=== PATIENT | male | born 1970 | race Caucasian/White ===

== ENCOUNTER → 2023-09-08 09:36 | Outpatient (CLI) | payer OTHER, MEDICAID, SELFPAY ==
[2023-09-08 19:09] LABS: Cholesterol 155 mg/dL (140-199); HDL Cholesterol 49 mg/dL (40-60); LDL Cholesterol Calculated 96 mg/dL (<100); Triglycerides 52 mg/dL (35-150)
[2023-09-08 19:12] LABS: Hemoglobin A1C% w Est Avg Glu 5.9 % (4.0-6.0)
[2023-09-17 17:53] LABS: Testosterone Free 7.24 ng/dL (5.00-21.00)
== END ==
PROVIDERS: PCP Family Medicine; Visit Provider Family Medicine
DX: R68.82 Decreased libido (principal)
CPT/HCPCS: 80061; 83036; 84402; 84403

== ENCOUNTER → 2023-10-07 07:58 | Outpatient (CLI) | payer OTHER, MEDICAID, SELFPAY ==
--- NOTE | 2023-10-08 08:45 | DI.NM.S_ITS ---
DATE OF SERVICE: 10/07/2023 PROCEDURE: Exercise stress test. INDICATIONS: Chest pain. CARDIAC STRESS: The patient underwent exercise stress test under the supervision of an attending staff. The patient walked on Se protocol for 12 minutes, achieved 12.8 METS of workload, DARIO -20%. Maximum heart rate 160, which is 96% of target heart rate. Resting blood pressure of 136/86 and peak blood pressure 182/92 mmHg. No chest pain or anginal symptoms. Baseline rhythm sinus. During stress, no convincing ischemic changes seen. No significant arrhythmias seen. CONCLUSION: Exercise stress test is negative for inducible ischemia. Good exercise tolerance. Normal hemodynamic response. No anginal symptoms. No significant arrhythmias. Overall, low-risk exercise stress test. Logan Wayne - LUCITA/jacob/ARIANA doc#: [id number]/job#: [id number] dd: 10/07/2023 16:40:00 dt: 10/07/2023 22:10:00 DICTATING /COPIES TO: William Barron MD COPIES MNE: ALLY;
== END ==
PROVIDERS: PCP Family Medicine; Referring Provider Family Medicine; Visit Provider Family Medicine
DX: R07.89 Other chest pain (principal)
CPT/HCPCS: 93017

== ENCOUNTER 2023-12-19 21:06 | Emergency (ER) | payer OTHER, MEDICAID, SELFPAY ==
[2023-12-19] VITALS (7 sets, daily range): BP systolic 117–150; BP diastolic 69–85; PULSE 54–65; RESP 16–18; TEMP 36.6; O2SAT 93–95
--- NOTE | 2023-12-19 21:49 | ED.SKABFB ---
HPI - Skin/Abscess/Foreign Bdy General Chief complaint: Skin/Abscess/Foreign Body Stated complaint: fever/rash Time Seen by Provider: 12/19/23 21:28 Source: patient Mode of arrival: Ambulatory Limitations: no limitations History of Present Illness HPI narrative: Patient is a 53-year-old male who the couple days is and fevers. He also has a rash that is located on his buttocks in his abdomen chest. He thinks it has been potentially because of being in a hot tub. He also has an area of redness and exquisite tenderness around his right breast around the nipple region. He was seen by his provider on [facility] who advised that he come to the emergency department for evaluation Related Data Previous Rx's Medication Instructions Recorded bupropion HCl 150 mg 24 hr tablet, 150 mg PO QAM #90 tabs 11/17/23 extended release (Wellbutrin XL) triamcinolone acetonide 0.1 % 1 applic topical BID #15 grams 11/17/23 topical cream cephalexin 500 mg capsule 500 mg PO QID 5 days #20 caps 12/19/23 Allergies Allergy/AdvReac Type Severity Reaction Status Date / Time No Known Drug Allergies Allergy Verified 08/26/23 11:12 Review of Systems Constitutional Constitutional: Reports system reviewed and no additional complaints, except as documented Cardiovascular Cardiovascular: Reports system reviewed and no additional complaints, except as documented Respiratory Respiratory: Reports system reviewed and no additional complaints, except as documented Musculoskeletal Musculoskeletal: Reports system reviewed and no additional complaints, except as documented Integumentary/Breasts Skin/Breast: Reports system reviewed and no additional complaints, except as documented Neurologic Neurologic: Reports system reviewed and no additional complaints, except as documented Allergic/Immunologic Allergic/Immunologic: Reports system reviewed and no additional complaints, except as documented Patient History Medical History Chicken pox Social History Smoking Status: Current some day smoker Smoking Status: Current some day smoker tobacco type: smokeless tobacco Substance Use Type: does not use Exam Initial Vital Signs Initial Vital Signs: Vital Signs Temperature 97.9 F 12/19/23 21:07 Pulse Rate 65 12/19/23 21:07 Respiratory Rate 16 12/19/23 21:07 Blood Pressure 145/76 H 12/19/23 21:07 Oxygen Delivery Method Room Air 12/19/23 21:07 Const General: cooperative, comfortable and No ill appearing HENMT Head: normal to inspection Resp Effort & Inspection: normal respiratory effort Auscultation: clear to auscultation bilaterally Cardio Rate: regular rate Rhythm: regular rhythm GI Inspection: normal to inspection Skin Other: Patient has well demarcated lesions on his buttocks and his abdomen is upper chest. They are pustules. No vesicles noted. There was no surrounding erythema. There is a area of redness and induration just medial to his right nipple. There are no vesicles in this area. Neuro General: patient alert, patient awake and moves all extremities Extrem General: capillary refill normal Course Orders Ordered: ED Orders 12/19/23 21:56 Covid-19 + FLU A/B + RSV - PCR Stat 12/19/23 23:10 Basic Metabolic Panel Stat Complete Blood Count AUTO DIFF Stat Discontinued Medications Cephalexin HCl (Cephalexin 250 Mg Capsule) 500 mg PO NOW ONE Stop: 12/19/23 21:50 Last Admin: 12/19/23 21:53 Dose: 500 mg Documented By: CHRIS Vital Signs Vital signs: Vital Signs - 8 hr 12/19/23 21:07 12/19/23 21:20 12/19/23 21:20 Temperature 97.9 F Pulse Rate 65 59 L Respiratory Rate 16 Blood Pressure 145/76 H 150/85 H Pulse Oximetry 95 Oxygen Delivery Method Room Air 12/19/23 21:30 12/19/23 21:30 12/19/23 22:00 Temperature Pulse Rate 61 Respiratory Rate Blood Pressure 139/85 133/71 Pulse Oximetry 94 Oxygen Delivery Method 12/19/23 22:00 12/19/23 22:30 12/19/23 22:30 Temperature Pulse Rate 57 L 56 L Respiratory Rate Blood Pressure 123/69 Pulse Oximetry 94 93 Oxygen Delivery Method 12/19/23 23:00 12/19/23 23:00 12/19/23 23:30 Temperature Pulse Rate 54 L 56 L Respiratory Rate 18 Blood Pressure 117/71 Pulse Oximetry 94 94 Oxygen Delivery Method MDM - Skin/Abscess/Foreign Bdy Lab Data Attestation: I reviewed the patient's lab results. 12/19/23 23:10 12/19/23 23:10 Labs: Lab Results 12/19/23 12/19/23 Range/Units 21:56 23:10 WBC 9.0 (4.5-11.0) X10^3/uL RBC 5.31 (4.5-5.9) X10^6/uL Hgb 16.2 (13.5-17.5) g/dL Hct 46.6 (41-53) % MCV 87.7 (80-100) fL MCH 30.5 (26-34) PG MCHC 34.8 (30-36) % RDW 13.2 (11.6-14.8) % Plt Count 262 (150-400) X10^3/uL Neut % (Auto) 59.7 (50-75) % Lymph % (Auto) 22.2 L (25-40) % [place] % (Auto) 8.3 (3-14) % Eos % (Auto) 9.3 H (2-4) % Baso % (Auto) 0.5 (0-2) % Neut # (Auto) 5400 (1001-6719) /uL Lymph # (Auto) 2000 (1742-3204) /uL [place] # (Auto) 700 (0-900) /uL Eos # (Auto) 800 H (0-450) /uL Baso # (Auto) 0 (0-100) /uL Sodium 137 (137-145) mmol/L Potassium 3.8 (3.4-5.1) mmol/L Chloride 106 (98-107) mmol/L Carbon Dioxide 25 (22-32) mmol/L BUN 16 (9-20) mg/dL Creatinine 0.65 L (0.66-1.25) mg/dL Estimated GFR > 60 (>60) mL/min BUN/Creatinine Ratio 24.6 H (6-22) Glucose 93 (70-100) mg/dL Calcium 9.3 (8.4-10.2) mg/dL SARS-CoV-2 (PCR) Negative (Negative) Influenza A (RT-PCR) Flu a negative (NEGATIVE) Influenza B (RT-PCR) Flu b negative (NEGATIVE) RSV (PCR) Negative (Negative) MDM Narrative Medical decision making narrative: Patient does pustules that is most consistent with folliculitis. Not consistent with HSV. Not consistent with shingles or chickenpox. The area around his right nipple would be consistent with a cellulitis. None of his other skin lesions appear to be cellulitic in origin. No recent antibiotics. COVID and flu is negative. Labs unremarkable in his vital signs are unremarkable. Will start him on antibiotics because of the area on his right chest. There was no drainable abscess noted. First dose of antibiotics given here in the emergency department. Will discharge home with return precautions. Patient expressed understanding and agreement. Discharge Plan Departure Patient Disposition: Home Clinical Impression: Folliculitis Instructions: DI for Cellulitis -- Adult, DI for Folliculitis Activity Restrictions/Additional Instructions: Take the antibiotics as directed. You can take Tylenol for any fevers. Contact your primary doctor for a follow-up. Return to the emergency department for new symptoms. Prescriptions: New cephalexin 500 mg capsule 500 mg PO QID 5 Days Qty: 20 0RF No Action bupropion HCl [Wellbutrin XL] 150 mg tablet extended release 24 hr 150 mg PO QAM Qty: 90 0RF triamcinolone acetonide 0.1 % cream 1 applic topical BID Qty: 15 0RF Referrals: Deangelo Rosales MD [Primary Care Provider] - Stand Alone Forms: Patient Portal/API
[2023-12-19] MEDS: cephALEXin 250 MG CAPSULE 500 MG PO (21:53)
--- NOTE | 2023-12-19 22:26 | PC.NURSE ---
patient was in the inflateable hot tub and then developed a rash on his legs, arms, and body. he also states that he has fever of 99.0 at home and feels achy and tired and generally not well. He has painful red lumps in his right armpit. He denies sick contacts and states that he has had this happen before but did not have fever.
[2023-12-19 22:47] LABS: Influenza A - CEPHEID Flu A NEGATIVE (NEGATIVE); Influenza B - CEPHEID Flu B NEGATIVE (NEGATIVE); Respiratory Syncytial Virus Negative (Negative)
[2023-12-19 23:00] LABS: COVID-19 CEPHEID 4-PLEX PCR Negative (Negative)
[2023-12-19 23:26] LABS: Add Manual Diff / Slide Review NO; Basophils Absolute Auto 0 /uL (0-100); Basophils Percent Auto 0.5 % (0-2); Eosinophils Absolute Auto 800 /uL (0-450); Eosinophils Percent Auto 9.3 % (2-4); Hematocrit 46.6 % (41-53); Hemoglobin 16.2 g/dL (13.5-17.5); Lymphocytes Absolute Auto 2000 /uL (1100-4500); Lymphocytes Percent Auto 22.2 % (25-40); Mean Corpuscular HGB Conc 34.8 % (30-36); Mean Corpuscular Hemoglobin 30.5 PG (26-34); Mean Corpuscular Volume 87.7 fL (80-100); Monocytes Absolute Auto 700 /uL (0-900); Monocytes Percent Auto 8.3 % (3-14); Neutrophils Absolute Auto 5400 /uL (1500-7000); Neutrophils Percent Auto 59.7 % (50-75); Platelet Count 262 X10^3/uL (150-400); Red Blood Cell Count 5.31 X10^6/uL (4.5-5.9); Red Cell Distribution Width 13.2 % (11.6-14.8)
[2023-12-19 23:31] LABS: BUN Creatinine Ratio 24.6 (6-22); Blood Urea Nitrogen 16 mg/dL (9-20); Calcium 9.3 mg/dL (8.4-10.2); Carbon Dioxide 25 mmol/L (22-32); Chloride 106 mmol/L (98-107); Estimated Glomerular Filt Rate > 60 mL/min (>60); Glucose 93 mg/dL (70-100); HEMOLYSIS 17 (0-50); Potassium 3.8 mmol/L (3.4-5.1); Sodium 137 mmol/L (137-145)
== END 2023-12-19 23:47 | disposition home or self-care (01) ==
PROVIDERS: Emergency Provider Emergency Medicine; PCP Family Medicine
DX: L73.9 Follicular disorder, unspecified (principal)
CPT/HCPCS: 0241U; 80048; 85025; 99283